=== PATIENT | male | born 1965 | race Asian ===

== ENCOUNTER 2020-10-01 22:27 | Observation (INO) | payer OTHER ==
[~2020-10-01] VITALS: Ht 175.3 cm; Wt 91.6 kg
[2020-10-01 22:31] VITALS: BP 154/94
[2020-10-01 23:07] LABS: ABSOLUTE EOSINOPHILS 0.1 thou/uL (0.0-0.7); ABSOLUTE LYMPHOCYTES 1.3 thou/uL (0.8-5.3); ABSOLUTE MONOCYTES 0.6 thou/uL (0.0-1.2); ABSOLUTE NEUTROPHILS 4.6 thou/uL (1.6-8.1); BASOPHILS 0.5 %; EOSINOPHILS 2.2 %; HEMATOCRIT 42.9 % (42.0-52.0); HEMOGLOBIN 14.4 gm/dL (14.0-18.0); LYMPHOCYTES 19.5 %; MCH 29.3 pg (26.0-34.0); MCHC 33.5 g/dL (28.0-37.0); MCV 87.7 fL (80.0-100.0); MPV 7.2 fl. (7.2-11.1); NUCLEATED RBCS 0 /100WBC; PLATELET COUNT* 227 thou/uL (150-400); POLYS 68.8 %; RBC 4.89 mil/uL (4.50-6.00); RDW-CV 14.3 % (10.5-14.5); WBC 6.7 thou/uL (4.0-11.0)
[2020-10-01 23:14] LABS: CALCIUM 8.6 mg/dL (8.5-10.1); CREATININE 1.1 mg/dL (0.6-1.3); POTASSIUM 3.4 mmol/L (3.5-5.1)
[2020-10-01 23:17] LABS: APTT 28.7 Seconds (25.0-31.3); INR 1.1; PROTIME 11.4 Seconds (9.20-11.50)
[2020-10-01 23:18] LABS: ALBUMIN 3.6 g/dL (3.4-5.0); TOTAL BILIRUBIN 0.7 mg/dL (<0.1-1.0); TOTAL PROTEIN 7.3 g/dL (6.4-8.2)
[2020-10-01 23:26] LABS: URINE BILIRUBIN NEGATIVE (Negative); URINE BLOOD NEGATIVE (Negative); URINE CLARITY CLEAR; URINE COLOR YELLOW; URINE GLUCOSE-RANDOM NEGATIVE (Negative); URINE KETONES NEGATIVE (Negative); URINE LEUKOCYTES-REFLEX NEGATIVE (Negative); URINE NITRITE-REFLEX NEGATIVE (Negative); URINE PROTEIN NEGATIVE (Negative); URINE UROBILINOGEN 0.2 E.U./dl (0.2-1.0)
[2020-10-02 03:44] VITALS: BP 116/64
[2020-10-02 04:00] VITALS: BP 115/77
[2020-10-02 08:15] VITALS: BP 135/99
--- NOTE | 2020-10-02 14:01 | EKG ---
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 : 1965 Requested By: Clara Goodwin Order Number: [id number] MD: [place] Measurements Intervals [place] Rate: 67 P: 44 OR: 191 QRS: 82 QRSD: 120 T: 15 QT: 414 QTc: 437 Interpretive Statements Sinus rhythm Nonspecific intraventricular conduction delay Baseline wander in lead(s) V3,V4,V5 No previous ECG available for comparison Electronically Signed On 10-02-2020 14:01:06 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
[2020-10-02 15:33] VITALS: BP 133/84
[2020-10-02] MEDS ORDERED: HYDROCODON-ACE1 EAC7 PO (18:32)
[2020-10-02 18:34] VITALS: BP 133/84
--- NOTE | 2020-10-04 13:34 | EKG ---
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 : 1965 Requested By: Clara Goodwin Order Number: [id number] Ashutosh MD: Ariel Aguirre Measurements Intervals [place] Rate: 68 P: 33 WI: 197 QRS: 43 QRSD: 118 T: 8 QT: 422 QTc: 449 Interpretive Statements Sinus rhythm Incomplete right bundle branch block Low voltage, precordial leads Compared to ECG 10/01/2020 22:25:37 Incomplete right bundle-branch block persists Low QRS voltage now present Electronically Signed On 10-04-2020 13:34:51 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
== END 2020-10-02 19:05 | disposition home or self-care (01) ==
LOC: M.ERS 22:27 → M.TBA-ER 10-02 01:53 → M.3W 10-02 03:47
PROVIDERS: Personal Emergency Response Attendant; ADMIT Internal Medicine; ATTEND Internal Medicine
DX: K80.00 Calculus of gallbladder with acute cholecystitis without obstruction (principal); Z79.899 Other long term (current) drug therapy; Z20.822 Contact with and (suspected) exposure to COVID-19